=== PATIENT | male | born 1945 | race Two or more races ===

== ENCOUNTER 2019-11-04 13:38 | Outpatient (CLI) | payer OTHER, MEDICARE, SELFPAY ==
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
== END 2019-11-04 13:39 | disposition home or self-care (01) ==
LOC: ANHIMG 13:47
PROVIDERS: PCP Internal Medicine; Visit Provider Nurse Practitioner Family
DX: M47.26 Other spondylosis with radiculopathy, lumbar region (principal); M47.22 Other spondylosis with radiculopathy, cervical region
CPT/HCPCS: 72141; 72148

== ENCOUNTER 2019-11-05 16:32 | Outpatient (CLI) | payer OTHER, MEDICARE, SELFPAY ==
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
== END 2019-11-05 16:33 | disposition home or self-care (01) ==
LOC: ANHIMG 16:40
PROVIDERS: PCP Internal Medicine; Visit Provider Nurse Practitioner Family
DX: M54.6 Pain in thoracic spine (principal)
CPT/HCPCS: 72070

== ENCOUNTER 2020-06-22 11:05 | Outpatient (CLI) | payer OTHER, MEDICARE, SELFPAY ==
--- NOTE | ~2020-06-22 | MR_ITS ---
EXAMINATION: MR brain/brain stem wo con EXAM DATE: 06/22/2020 12:17 INDICATION: Headache, at the vertex. Left hand tremor. Memory loss. TECHNIQUE: Magnetic resonance imaging (MRI) of the brain/brain stem obtained without contrast. Sagitt al T1, axial diffusion, gradient echo (T2*), T1, T2, FLAIR sequences obtained. There is no prior st udy for comparison. FINDINGS: There are no areas of restricted diffusion to suggest acute infarction. There is no acute hemorrhage seen on the T2*, a hemosiderin sensitive sequence. No intraparenchymal brain mass lesion. Small basal ganglia cystic regions bilaterally probably dilated perivascular spaces. There is mild t o moderate periventricular and subcortical T2/FLAIR signal hyperintensity, nonspecific but probably r elated to small vessel ischemic disease (microangiopathy). There is mild to moderate prominence of the sulci and ventricles related to cerebral atrophy. There are no extra-axial collections. Flow v oids are seen in the cerebral arteries on the T2-weighted sequences consistent with their expected pa tency. The orbits are unremarkable. Soft tissue is unremarkable. IMPRESSION: 1. No acute intracranial findings. 2. Chronic age related findings. Reviewed, dictated and finalized at location A.
== END 2020-06-22 11:06 | disposition home or self-care (01) ==
PROVIDERS: PCP Internal Medicine; Visit Provider Internal Medicine
DX: R51.9 Headache, unspecified (principal)
CPT/HCPCS: 70551

== ENCOUNTER 2020-11-25 00:33 | Day surgery (SDC) | payer MEDICARE, SELFPAY ==
[2020-11-16 13:07] VITALS: BMI 38.0
[2020-11-25 09:22] VITALS: BP 154/71; PULSE 57; RESP 18; TEMP 36.3; O2SAT 100; BMI 36.8
--- NOTE | 2020-11-25 09:30 | PM.HPGS ---
History of Present Illness History of Present Illness Consent: Risks, benefits, and alternatives have been discussed and questions answered. Patient agrees to proceed with procedure. Chief complaint: GERD, neoplasm screening Narrative: Abhi Orona is a 75 year old male Here for colon cancer screening. He had a polyp removed 5 years ago. He suffers from chronic acid reflux for which he takes omeprazole. He denies dysphagia Review of Systems Review of Systems: All systems reviewed & are unremarkable except as noted in HPI and below PMFSH Social History Social History Smoking status: Unknown if ever smoked Substance use type: does not use Living arrangements: with family Gender identity (if verbalized by the patient): Male Meds Home Medications and Allergies Home Medications Medication Instructions Recorded Confirmed Type albuterol sulfate 2.5 mg INHALATION Q6H 02/15/19 11/25/20 History alprazolam [Xanax] 0.25 mg PO DAILY 02/15/19 11/25/20 History amlodipine-benazepril [Lotrel] 1 cap PO DAILY 02/15/19 11/25/20 History budesonide-formoterol [Symbicort] 2 puff INHALATION Q12H 02/15/19 11/25/20 History ezetimibe [Zetia] 10 mg PO DAILY 02/15/19 11/25/20 History gabapentin 300 mg PO TID 02/15/19 11/25/20 History hydrochlorothiazide 12.5 mg PO DAILY 02/15/19 11/25/20 History hydrocodone-acetaminophen 1 tablet PO Q4H PRN #14 tablet 02/15/19 11/25/20 Rx isosorbide mononitrate 30 mg PO DAILY 02/15/19 11/25/20 History ketoconazole-skin cleanser 28 2 % TOPICAL DAILY 02/15/19 11/25/20 History meloxicam 7.5 mg PO DAILY 02/15/19 11/25/20 History metformin 750 mg PO BID 02/15/19 11/25/20 History metoprolol succinate 50 mg PO BID 02/15/19 11/25/20 History omeprazole 40 mg PO DAILY 02/15/19 11/25/20 History rosuvastatin 20 mg PO DAILY 02/15/19 11/25/20 History tramadol [Ultram] 50 mg PO HS 02/15/19 11/25/20 History Allergies Allergy/AdvReac Type Severity Reaction Status Date / Time Sulfa (Sulfonamide Allergy Hives Verified 11/25/20 09:21 Antibiotics) Vital Signs Vital Signs - 24 hr 11/25/20 09:22 Temperature 36.3 C L Pulse Rate 57 L Respiratory Rate 18 Blood Pressure 154/71 H Pulse Oximetry 100 Exam Const: General: alert Orientation/consciousness: patient oriented x3 Resp: Auscultation: clear to auscultation bilaterally Cardio: Rhythm: regular rhythm GI: GI Palp: Yes Soft to palpation and No Tenderness to palpation present (GI) Neuro: General: patient oriented x3 Assessment and Plan Assessment and plan (1) Colon cancer screening: Code(s): Z12.11 - Encounter for screening for malignant neoplasm of colon Status: Acute Assessment and Plan: Colonoscopy with possible biopsy or polypectomy or cautery or injection of substances. (2) GERD (gastroesophageal reflux disease): Code(s): K21.9 - Gastro-esophageal reflux disease without esophagitis Status: Acute Assessment and Plan: EGD with possible biopsy or dilatation or cautery.
[2020-11-25] MEDS: LACTATED RINGERS 1,000 ML 150 ML IV CONT (09:38)
--- NOTE | 2020-11-25 09:57 | P.PNAN_ITS ---
Anes - Initial Pre Proc Eval Procedure: Operation Date: 11/25/20 10:00 Proposed Procedures p Esophagogastroduodenoscopy & Screening Colonoscopy - Rodrigo Burrell MD Date/Time: 11/25/20 09:57 Surgeon: Rodrigo Burrell MD Pre Op Diagnosis: GERD, neoplasm screening Patient Data Age: 75 Gender: M Height: 1.73 m Weight: 109.7 kg Last Vital Signs Temp 97.4 F L 11/25/20 09:22 Pulse 57 L 11/25/20 09:22 Resp 18 11/25/20 09:22 BP 154/71 H 11/25/20 09:22 Pulse Ox 100 11/25/20 09:22 Allergies Allergy/AdvReac Type Severity Reaction Status Date / Time Sulfa (Sulfonamide Allergy Hives Verified 11/25/20 09:21 Antibiotics) Home Medications Medication Instructions Recorded Confirmed Type albuterol sulfate 2.5 mg INHALATION Q6H 02/15/19 11/25/20 History alprazolam [Xanax] 0.25 mg PO DAILY 02/15/19 11/25/20 History amlodipine-benazepril [Lotrel] 1 cap PO DAILY 02/15/19 11/25/20 History budesonide-formoterol [Symbicort] 2 puff INHALATION Q12H 02/15/19 11/25/20 History ezetimibe [Zetia] 10 mg PO DAILY 02/15/19 11/25/20 History gabapentin 300 mg PO TID 02/15/19 11/25/20 History hydrochlorothiazide 12.5 mg PO DAILY 02/15/19 11/25/20 History hydrocodone-acetaminophen 1 tablet PO Q4H PRN #14 tablet 02/15/19 11/25/20 Rx isosorbide mononitrate 30 mg PO DAILY 02/15/19 11/25/20 History ketoconazole-skin cleanser 28 2 % TOPICAL DAILY 02/15/19 11/25/20 History meloxicam 7.5 mg PO DAILY 02/15/19 11/25/20 History metformin 750 mg PO BID 02/15/19 11/25/20 History metoprolol succinate 50 mg PO BID 02/15/19 11/25/20 History omeprazole 40 mg PO DAILY 02/15/19 11/25/20 History rosuvastatin 20 mg PO DAILY 02/15/19 11/25/20 History tramadol [Ultram] 50 mg PO HS 02/15/19 11/25/20 History Patient hx anesthesia problems: none Family hx anesthesia problems: none [facility] Past Medical History Medical History (Updated 11/25/20 @ 09:57 by Norbert Powell MD) Hyperlipidemia Hypertension Surgical History Surgical History (Updated 11/25/20 @ 09:56 by Norbert Powell MD) S/P CABG x 4 Social History Social History Smoking status: Unknown if ever smoked Substance use type: does not use Living arrangements: with family Gender identity (if verbalized by the patient): Male Anes - Eval Final PreProcedure Day of Procedure 11/25/20 09:57 Patient weight: obese Heart: regular rate and rhythm Lungs: clear to auscultation Airway: Mallampati scale class III Neurological: alert and oriented Last oral intake: >/= 8 hours ASA classification: III Emergent: no Anesthetic plan: proceed Anesthesia type and monitoring: general GIVS and standard monitoring Informed Consent: The patient's anesthetic plan and its attendant risks and benefits were discussed with the patient/family/POA. Questions were solicited and answers provided to the satisfaction of the patient/family/POA.
[2020-11-25 10:34] VITALS: BP 104/51; PULSE 57; RESP 16; O2SAT 100
[2020-11-25 10:44] VITALS: BP 126/59; PULSE 55; RESP 18; O2SAT 100
[2020-11-25 10:54] VITALS: BP 147/81; PULSE 55; RESP 20; O2SAT 100
--- NOTE | 2020-11-25 11:27 | SUR.PHASEII ---
Lithographic Press Operator will not be here until noon. Patient will await discharge in surgery waiting room. Staff in waiting room will watch patient per Kim Pike RN.Fatoumata Avendano RN
== END 2020-11-25 12:00 | disposition home or self-care (01) ==
PROVIDERS: PCP Internal Medicine; Visit Provider Internal Medicine Gastroenterology
PROC: 0DJ08ZZ Inspection of Upper Intestinal Tract, Via Natural or Artificial Opening Endoscopic (ICD-10-PCS; CPT 43235; principal; 2020-11-25 10:00)
DX: Z12.11 Encounter for screening for malignant neoplasm of colon (principal); K21.9 Gastro-esophageal reflux disease without esophagitis; Z79.84 Long term (current) use of oral hypoglycemic drugs; I10 Essential (primary) hypertension; E78.5 Hyperlipidemia, unspecified; Z95.1 Presence of aortocoronary bypass graft; E66.9 Obesity, unspecified; Z68.36 Body mass index [BMI] 36.0-36.9, adult
CPT/HCPCS: 43235; G0121; J2001; J2704; J7120